=== PATIENT | male | born 1955 | race Caucasian/White ===

== ENCOUNTER → 2024-02-12 11:33 | Outpatient (REF) | payer OTHER, SELFPAY | LOC: HWRAD 11:33 | PROVIDERS: ATTENDING PHYSICIAN Nurse Practitioner | DX: M79.642 Pain in left hand (principal); R07.81 Pleurodynia; M25.552 Pain in left hip; W19.XXXA Unspecified fall, initial encounter | CPT/HCPCS: 71101; 73130; 73502 ==

== ENCOUNTER → 2025-02-27 10:01 | Outpatient (REF) | payer OTHER, SELFPAY | LOC: HWRCS 10:01 | PROVIDERS: ATTENDING PHYSICIAN Internal Medicine Cardiovascular Disease; FAMILY PHYSICIAN Nurse Practitioner | DX: I10 Essential (primary) hypertension (principal); I35.0 Nonrheumatic aortic (valve) stenosis | CPT/HCPCS: 93306 ==